=== PATIENT | male | born 1985 | race Caucasian/White ===

== ENCOUNTER 2018-10-01 09:48 | Emergency (ER) | payer SELFPAY ==
[2018-10-01 09:59] VITALS: BP 136/88
--- NOTE | 2018-10-01 10:29 | UC ---
Eye Complaint HPI - HPI Summary HPI Summary: 33-year-old male comes in with a chief complaint of upper respiratory tract infection symptoms and left I redness and draining with crusting. Upper respiratory tract infection symptoms started 2 days ago.'s been having drainage of this morning he had yellow crust on his eyelids. No fevers no chills. Rhinorrhea is yellow. No cough or chest congestion. Does not wear contacts. No complaint of change in vision. - History of Current Complaint Chief Complaint: UCEye Stated Complaint: EYE IRRITATION Pain Intensity: 0 - Allergies/Home Medications Allergies/Adverse Reactions: Allergies Allergy/AdvReac Type Severity Reaction Status Date / Time Bees Allergy See Comment Uncoded 10/01/18 10:00 PMH/Surg Hx/FS Hx/Imm Hx Previously Healthy: Yes - Surgical History Surgical History: None - Family History Known Family History: Positive: None - Social History Alcohol Use: Rare Substance Use Type: None Smoking Status (MU): Never Smoked Tobacco - Immunization History Most Recent Tetanus Shot: unknown Review of Systems All Other Systems Reviewed And Are Negative: Yes Constitutional: Positive: Negative Skin: Positive: Negative Eyes: Positive: Drainage, Eye Redness ENT: Positive: Nasal Discharge, Sinus Congestion Respiratory: Positive: Negative Cardiovascular: Positive: Negative Gastrointestinal: Positive: Negative Motor: Positive: Negative Neurovascular: Positive: Negative Musculoskeletal: Positive: Negative Neurological: Positive: Negative Psychological: Positive: Negative Is Patient Immunocompromised?: No Physical Exam Triage Information Reviewed: Yes Appearance: Well-Appearing, No Pain Distress, Well-Nourished Vital Signs: Initial Vital Signs Temp 98.1 F 10/01/18 09:57 Pulse 89 10/01/18 09:57 Resp 18 10/01/18 09:57 BP 136/88 10/01/18 09:57 Pulse Ox 100 10/01/18 09:57 Vital Signs Reviewed: Yes Eyes: Positive: Conjunctiva Inflamed - LEFT, Discharge - LEFT ENT: Positive: Nasal congestion, Nasal drainage, TMs normal Neck: Positive: Supple Respiratory: Positive: Lungs clear, Normal breath sounds, No respiratory distress Cardiovascular: Positive: RRR Musculoskeletal: Positive: Strength Intact, ROM Intact Neurological: Positive: Alert, Muscle Tone Normal Psychological: Positive: Normal Response To Family, Age Appropriate Behavior Skin Exam: Normal Eye Complaint Course/Dx - Differential Dx/Diagnosis Provider Diagnosis: Conjunctivitis, Upper respiratory infection Discharge - Sign-Out/Discharge Documenting (check all that apply): Patient Departure All imaging exams completed and their final reports reviewed: No Studies - Discharge Plan Condition: Stable Disposition: HOME Prescriptions: Tobramycin 0.3% OPHTH.MALIKA* 1 drop LEFT EYE Q4H #1 btl Patient Education Materials: Upper Respiratory Infection (ED), Conjunctivitis ( ED) Referrals: Steven Aguilera MD [Primary Care Provider] - Additional Instructions: FOLLOW UP WITH YOUR DOCTOR IF NOT COMPLETELY IMPROVED. GET RECHECKED SOONER IF YOUR CONDITION WORSENS OR ANY QUESTIONS OR CONCERNS. - Billing Disposition and Condition Condition: STABLE Disposition: Home
== END 2018-10-01 10:34 | disposition home or self-care (01) ==
LOC: UCEAST 09:48
DX: J06.9 Acute upper respiratory infection, unspecified (principal); H10.9 Unspecified conjunctivitis
CPT/HCPCS: 99202; G0463

== ENCOUNTER 2019-04-04 09:56 | Emergency (ER) | payer SELFPAY ==
[2019-04-04 10:06] VITALS: BP 139/93
--- NOTE | 2019-04-04 10:40 | UC ---
FLU HPI - HPI Summary HPI Summary: 33 yo with malaise, cough, fever up to 102, onset x 2 days ago. Children have had flu. 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 - History of Current Complaint Chief Complaint: UCRespiratory Stated Complaint: COUGH, CONGESTION Time Seen by Provider: 04/04/19 10:33 Hx Obtained From: Patient Onset/Duration: Gradual Onset, Lasting Days Severity Currently: Mild Severity Initially: Mild Pain Intensity: 0 Associated Signs & Symptoms: Positive: Fever, Myalgia, Cough, Nasal Congestion Related Hx: Possible Flu/Infectious Exposure - Risk Factors Influenza Risk Factors: Negative - Allergy/Home Medications Allergies/Adverse Reactions: Allergies Allergy/AdvReac Type Severity Reaction Status Date / Time Bees Allergy See Comment Uncoded 04/04/19 10:06 Home Medications: Home Medications Tylenol Cold-Flu Day-Nt Caplet 1 dose PO ONCE PRN 04/04/19 [History Confirmed ] PMH/Surg Hx/FS Hx/Imm Hx Previously Healthy: Yes - Surgical History Surgical History: None - Family History Known Family History: Positive: None - Social History Occupation: Employed Full-time Lives: With Family Alcohol Use: Rare Substance Use Type: None Smoking Status (MU): Never Smoked Tobacco - Immunization History Most Recent Tetanus Shot: unknown Review of Systems All Other Systems Reviewed And Are Negative: Yes Constitutional: Positive: Fever, Fatigue Skin: Positive: Negative Eyes: Positive: Negative ENT: Positive: Sore Throat Respiratory: Positive: Cough - productive of dark yellow/light orange sputum. Negative: Shortness Of Breath Cardiovascular: Positive: Negative Gastrointestinal: Positive: Negative Genitourinary: Positive: Negative Motor: Positive: Negative Neurovascular: Positive: Negative Musculoskeletal: Positive: Negative Neurological/Mental Status: Positive: Negative Psychological: Positive: Negative Is Patient Immunocompromised?: No Physical Exam Triage Information Reviewed: Yes Appearance: No Pain Distress, Ill-Appearing - looks mildly unwell Vital Signs: Initial Vital Signs Temp 98.0 F 04/04/19 10:02 Pulse 94 04/04/19 10:02 Resp 18 04/04/19 10:02 BP 139/93 04/04/19 10:02 Pulse Ox 100 04/04/19 10:02 ENT: Positive: Pharyngeal erythema. Negative: Tonsillar swelling, Tonsillar exudate Dental Exam: Normal Neck: Positive: Supple, Nontender, No Lymphadenopathy Respiratory: Positive: Lungs clear, Normal breath sounds, No respiratory distress Cardiovascular: Positive: RRR, No Murmur Musculoskeletal Exam: Normal Neurological Exam: Normal Psychological Exam: Normal Skin Exam: Normal Diagnostics - Laboratory Lab Results: influenza B positive Flu Course/Dx - Course Course Of Treatment: Continue symptomatic treatment of viral illness. - Differential Dx/Diagnosis Differential Diagnosis/HQI/PQRI: Influenza, Upper Respiratory Infection Provider Diagnosis: Influenza B Discharge ED - Sign-Out/Discharge Documenting (check all that apply): Patient Departure All imaging exams completed and their final reports reviewed: No Studies - Discharge Plan Condition: Stable Disposition: HOME Patient Education Materials: Influenza (ED) Forms: *Work Release Referrals: Steven Aguilera MD [Primary Care Provider] - Additional Instructions: Continue use of medications to lower fever and control symptoms. Ensure a high intake of fluids. Return if you have increasing shortness of breath or chest pain. Rest at home until 24 hours fever free. - Billing Disposition and Condition Condition: STABLE Disposition: Home
[2019-04-04 10:52] LABS: Influenza B Molecular POSITIVE (Negative)
== END 2019-04-04 11:22 | disposition home or self-care (01) ==
LOC: UCEAST 09:56
DX: J10.1 Influenza due to other identified influenza virus with other respiratory manifestations (principal); Z91.030 Bee allergy status
CPT/HCPCS: 99211; G0463